=== PATIENT | female | born 1985 | race Hispanic/Latino ===

== ENCOUNTER 2019-02-28 21:16 | Emergency (ER) | payer OTHER, SELFPAY | END 2019-02-28 22:35 | disposition home or self-care (01) | LOC: ERS 21:16 | DX: F10.129 Alcohol abuse with intoxication, unspecified (principal); Y90.8 Blood alcohol level of 240 mg/100 ml or more; V49.40XA Driver injured in collision with unspecified motor vehicles in traffic accident, initial encounter | CPT/HCPCS: 36415; 80307; 96360 ==